=== PATIENT | male | born 2000 | race Caucasian/White ===

== ENCOUNTER 2021-01-11 11:55 | Emergency (ER) | payer OTHER ==
--- NOTE | 2021-01-11 14:24 | ER ---
Nurse's Notes [facility] Name: Gerardo Kebede Age: 20 yrs Sex: Male : 2000 Arrival Date: 01/11/2021 Time: 11:59 Bed Waiting Private MD: Diagnosis: Acute upper respiratory infection, unspecified Presentation: 01/11 14:46 Chief complaint: Patient states: Pt reports sore throat that radiates into chest, N/V, lm7 cough and congestion. Co workers have tested positive. Coronavirus screen: Client denies travel out of the [place] in the last 14 days. congestion, cough unrelated to allergies, sore throat, vomiting. Client presents with at least one sign or symptom that may indicate coronavirus-19. Standard/surgical mask placed on the client. Ebola Screen: Patient negative for fever greater than or equal to 101.5 degrees Fahrenheit, and additional compatible Ebola Virus Disease symptoms Patient denies exposure to infectious person. Patient denies travel to an Ebola-affected area in the 21 days before illness onset. Initial Sepsis Screen: Does the patient meet any 2 criteria? No. Patient's initial sepsis screen is negative. Does the patient have a suspected source of infection? No. Patient's initial sepsis screen is negative. Risk Assessment: Do you want to hurt yourself or someone else? Patient reports no desire to harm self or others. Onset of symptoms was January 10, 2021. 14:46 Method Of Arrival: Ambulatory lm7 14:46 Acuity: UVALDO 4 lm7 Triage Assessment: 14:49 General: Appears in no apparent distress. Behavior is calm, cooperative. Pain: lm7 Complains of pain in sore throat. EENT: Reports nasal congestion nasal discharge. EENT: Reports. Neuro: No deficits noted. Respiratory: Reports air hunger. GI: No deficits noted. Derm: No deficits noted. Musculoskeletal: No deficits noted. Historical: - Allergies: 14:49 No Known Allergies; lm7 - PMHx: 14:49 nose bleed; lm7 - Immunization history:: Client reports having NOT received the Covid vaccine. - Social history:: Smoking status: Patient denies any tobacco usage or history of. Screenin:50 Abuse screen: Denies threats or abuse. Denies injuries from another. Nutritional lm7 screening: No deficits noted. Tuberculosis screening: No symptoms or risk factors identified. Fall Risk None identified. Assessment: 14:22 Reassessment: pt called from waiting room. no answer. left before being triaged. tr6 14:50 Neuro: No deficits noted. Cardiovascular: No deficits noted. Respiratory: Airway is lm7 patent Respiratory effort is even, unlabored, Respiratory pattern is regular, Breath sounds are clear bilaterally. GI: No deficits noted. EENT: Throat Reports nasal congestion nasal discharge. Vital Signs: 14:46 BP 125 / 87; Pulse 112; Resp 16; Temp 100.4; Pulse Ox 100% on R/A; Weight 61.23 kg; lm7 Height 5 ft. 10 in. (177.80 cm); Pain 6/10; 14:46 Body Mass Index 19.37 (61.23 kg, 177.80 cm) lm7 ED Course: 11:59 Patient arrived in ED. mr 14:49 Triage completed. lm7 14:49 Roy[facility] Barnett [facility]C [facility]. kb 14:49 Jean Pierre Carr MD is Attending Physician. kb 14:49 Arm band placed on left wrist. lm7 14:50 Patient has correct armband on for positive identification. lm7 14:50 No provider procedures requiring assistance completed. lm7 Administered Medications: No medications were administered Outcome: 14:23 Patient left the ED. tr6 16:16 Discharge ordered by . kb 16:23 Patient left the ED. kb Signatures: Roya Barnett FNP-C FNP-Apolinar Marta Mooney Laura lm7 Chanel Aleman, RN RN tr6
[2021-01-11 16:05] LABS: SARS-COV-2 RT PCR NEGATIVE (NEGATIVE)
--- NOTE | 2021-01-11 16:16 | EDPHYS ---
Physician Documentation [facility] Name: Gerardo Kebede Age: 20 yrs Sex: Male : 2000 Arrival Date: 01/11/2021 Time: 11:59 Bed Waiting Private MD: ED Physician Jean Pierre Carr HPI: 01/11 16:34 This 20 yrs old Male presents to ER via Ambulatory with complaints of Sore kb Throat, Vomiting, Cough. 16:34 The patient has not experienced similar symptoms in the past. The patient has not kb recently seen a physician. Patient complains of sore throat, cough, congestion, nausea with 1 episode of vomiting, body aches. States coworkers have tested positive. Symptoms started yesterday.. 16:35 The patient or guardian reports cough, that is intermittent, described as mild, with no kb sputum, flu symptoms, myalgias. Onset: The symptoms/episode began/occurred yesterday. Severity of symptoms: At their worst the symptoms were moderate, in the emergency department the symptoms are unchanged. Modifying factors: The symptoms are alleviated by nothing, the symptoms are aggravated by nothing. Associated signs and symptoms: Pertinent positives: nausea, rhinorrhea, sore throat, Pertinent negatives: chest pain, diarrhea, ear ache, fever. Historical: - Allergies: 14:49 No Known Allergies; lm7 - PMHx: 14:49 nose bleed; lm7 - Immunization history:: Client reports having NOT received the Covid vaccine. - Social history:: Smoking status: Patient denies any tobacco usage or history of. ROS: 16:33 Neuro: Negative for headache, weakness, numbness, tingling, and seizure. kb 16:33 Constitutional: Positive for body aches, fatigue, malaise, Negative for chills, fever. 16:33 ENT: Positive for rhinorrhea, sinus congestion, sore throat. 16:33 Respiratory: Positive for cough, Negative for dyspnea on exertion, hemoptysis, orthopnea, pleurisy, shortness of breath, sputum production, wheezing. 16:33 All other systems are negative. Exam: 16:34 Constitutional: This is a well developed, well nourished patient who is awake, alert, kb and in no acute distress. Head/Face: Normocephalic, atraumatic. ENT: Moist Mucous membranes Cardiovascular: Regular rate and rhythm with a normal S1 and S2. No gallops, murmurs, or rubs. No pulse deficits. Respiratory: Respirations even and unlabored. No increased work of breathing, no retractions or nasal flaring. Abdomen/GI: Soft, non-tender. No distention Skin: Warm, dry with normal turgor. Normal color. MS/ Extremity: Pulses equal, no cyanosis. Neurovascular intact. Full, normal range of motion. Neuro: Awake and alert, GCS 15, oriented to person, place, time, and situation. Moves all extremities. Normal gait. Psych: Awake, alert, with orientation to person, place and time. Behavior, mood, and affect are within normal limits. Vital Signs: 14:46 BP 125 / 87; Pulse 112; Resp 16; Temp 100.4; Pulse Ox 100% on R/A; Weight 61.23 kg; lm7 Height 5 ft. 10 in. (177.80 cm); Pain 6/10; 14:46 Body Mass Index 19.37 (61.23 kg, 177.80 cm) lm7 MDM: 14:49 Patient medically screened. kb 16:28 Data reviewed: vital signs, nurses notes. Data interpreted: Pulse oximetry: on room air kb is 100 %. Interpretation: normal. Counseling: I had a detailed discussion with the patient and/or guardian regarding: the historical points, exam findings, and any diagnostic results supporting the discharge/admit diagnosis, lab results, the need for outpatient follow up, a family practitioner, to return to the emergency department if symptoms worsen or persist or if there are any questions or concerns that arise at home. 01/11 16:06 Order name: COVID-19/FLU A+B; Complete Time: 16:09 EDNV 01/11 16:09 Order name: Strep kb Administered Medications: No medications were administered Disposition Summary: 01/11/21 16:16 Discharge Ordered Location: Home Condition: Stable(01/11/21 16:16) Diagnosis - Acute upper respiratory infection, unspecified kb Followup: kb - With: Emergency Department - When: As needed - Reason: Worsening of condition Followup: kb - With: Private Physician - When: 2 - 3 days - Reason: Recheck today's complaints, Continuance of care, Re-evaluation by your physician Discharge Instructions: - Discharge Summary Sheet kb - Upper Respiratory Infection, Adult, [id number] kb - Viral Respiratory Infection, [id number] kb - COVID-19 kb Forms: - Medication Reconciliation Form kb - Thank You Letter kb - Antibiotic Education kb - Prescription Opioid Use kb Addendum: 01/14/2021 07:09 Co-signature as Attending Physician, Jean Pierre Carr MD I agree with the assessment and k dr plan of care. Signatures: Dispatcher [employer] EDMS Roya Barnett, [employer]ER-C TANB[employer] LABORER-Ckb Jean Pierre Carr MD MD [facility] Bridgett Cruz 7 Chanle Aleman RN RN tr6 Corrections: (The following items were deleted from the chart) 01/11 15:25 14:51 Influenza Screen (A \T\ B)+BA.LAB.BRZ ordered. EDMS EDMS 15:25 14:51 CORONAVIRUS+MR.LAB.BRZ ordered. EDNV EDMS 16:15 14:23 Before Triage tr6 kb 16:15 14:23 wait time tr6 kb 16:15 14:23 Undetermined tr6 kb
[2021-01-11 16:28] VITALS: BP 125/87; TEMP 100.4; O2SAT 100
[2021-01-11] MEDS ORDERED: IBUPROFEN 200 MG TAB PO ONE (16:40)
[2021-01-11] MEDS ORDERED: IBUPROFEN 400 MG TAB ONE (16:41)
== END 2021-01-11 16:23 | disposition home or self-care (01) ==
LOC: ER 11:55
DX: J06.9 Acute upper respiratory infection, unspecified (principal); Z20.822 Contact with and (suspected) exposure to COVID-19
CPT/HCPCS: 0240U; 99281